=== PATIENT | male | born 1935 | race Caucasian/White ===

== ENCOUNTER → 2017-10-03 | Outpatient (CLI) | payer MEDICARE ==
[~2017-10-03] MED LIST: ALTACE5 M1 PO; ASPIRIN81 M1 PO; ATIVAN0.5 MG PO; ATORVASTATIN CA10 MG PO; BUDEPRION XL150 MG PO; BUPROPION XL150 MG PO; CIALIS5 MG PO; FLOMAX0.4 MG PO; LIPITOR10 MG PO; LORAZEPAM0.5 MG PO; MULTAQ400 MG PO; NORVASC5 MG PO; OMEPRAZOLE20 M1 PO; OMEPRAZOLE20 MG PO; RAMIPRIL2.5 MG PO; SERTRALINE HCL50 MG PO; SOTALOL80 MG PO; TAMSULOSIN HCL0.4 MG PO; TEMAZEPAM15 MG PO; TYLENOL PO
--- NOTE | 2017-10-03 14:14 | Diagnostic Imaging Report ---
PROCEDURE: X-RAY CHEST, TWO VIEWS COMPARISON: Patients [facility], DX, CHEST 2 VIEWS, 09/25/2016, 12:24. INDICATIONS: COUGH, ENLARGED LYMPH NODES FINDINGS: LUNGS: No consolidations or edema. PLEURA: No effusions or pneumothorax. HEART \T\ MEDIASTINUM: The heart is within normal size-limits. Tortuous thoracic aorta. BONES \T\ SOFT TISSUES: Degenerative changes about both shoulders and involving the thoracic spine. CONCLUSION: No acute thoracic abnormality or significant interval change. Jhon George D.O. Dictated by: Jhon George D.O. on 10/03/2017 at 14:16 Electronically approved by: Jhon George D.O. on 10/03/2017 at 14:16
== END ==
LOC: RAD 13:52
PROVIDERS: ATTEND Internal Medicine Cardiovascular Disease
DX: R05 Cough (principal); R59.9 Enlarged lymph nodes, unspecified
CPT/HCPCS: 71046

== ENCOUNTER → 2017-10-21 | Day surgery (SDC) | payer MEDICARE ==
[~2017-10-21] MED LIST changes: +ACETAMINOPHEN 1000 MG/100 ML 100 ML IV ONE; +BUPIVACAINE 0.25%/EPI 30ML SDV INJ ONE; +BUPIVACAINE HCL 0.5% INJ 30 ML VIAL INJ ONE; +DEXAMETHASONE SOD PHOS INJ 4 MG/ML VIAL ONE; +EPHEDRINE SULFATE INJ 50 MG/10 ML SYR ONE; +FENTANYL CITRATE/PF 100MCG/2 ML INJ ONE; +LIDOCAINE HCL 2% LOCAL INJ 5 ML SDV VIAL INJ ONE; +LORAZEPAM 0.5 MG TAB ONE; +LORAZEPAM 0.5 MG TAB PO NR; +MIDAZOLAM HCL 2 MG/2 ML VIAL ONE; +OMEPRAZOLE40 MG; +ONDANSETRON HCL INJ 2 MG/ML VIAL ONE; +PRADAXA75 MG; +PROPOFOL IV EMULSION 10 MG/ML 20 ML VIAL ONE; +SEVOFLURANE INHAL SOLN 250 ML PEN BTL ONE
--- OUTSIDE RECORDS SUMMARY | 2017-10-21 08:36 | XMS REPORT ---
Author Author [facility] Address Unknown Phone Unavailable Care Team Providers Care [employer] History Teacher Name Role Phone JAMIL MARTIN Unavailable Unavailable Problems This patient has no known problems. Allergies, Adverse Reactions, Alerts This patient has no known allergies or adverse reactions. Medications This patient has no known medications. Results Test Description Test Time Test Comments Text Results Atomic Results Result Comments CHEST 2 VIEWS [place] [id number] [place] [id number] Patient Name: JULIÁN BANKS MR #: [id number] : 1935 Age/Sex: 82/M Req # : [id number] Adm Physician: Ordered by: JAMIL MARTIN MD Report #: [id number] Location: [facility] Room/Bed: Procedure: [id number] DX/ CHEST 2 VIEWS Exam Date: 10/03/17 Exam Time: 1350 REPORT STATUS: Signed PROCEDURE: X-RAY CHEST, TWO VIEWS COMPARISON: [facility], DX, CHEST 2 VIEWS, 09/25/2016, 12:24. INDICATIONS: COUGH, ENLARGED LYMPH NODES FINDINGS: LUNGS: No consolidations or edema. PLEURA: No effusions or pneumothorax. HEART T MEDIASTINUM: The heart is within normal size-limits. Tortuous thoracic aorta. BONES T SOFT TISSUES: Degenerative changes about both shoulders and involving the thoracic spine. CONCLUSION: No acute thoracic abnormality or significant interval change. Sergey George D.O. Dictated by: Sergey George D.O. on 10/03/2017 at 14:16 Electronically approved by: Sergey George D.O. on 10/03/2017 at 14:16 Dictated By: SERGEY GEORGE DO 1416 Transcribed By: JOSE on 10/03/17 1416 COPY TO: JAMIL MARTIN MD
[2017-10-21 09:44] LABS: BASOPHILS % 0.7 % (0.0-1.0); EOSINOPHILS # (AUTO) 0.1 (0.0-0.4); EOSINOPHILS % 2.3 % (0.0-6.0); HEMATOCRIT 38.7 % (38.2-49.6); HEMOGLOBIN 12.8 g/dL (14.0-18.0); LYMPHOCYTES # (AUTO) 0.6 (1.0-3.2); LYMPHOCYTES % 13.9 % (18.0-39.1); MEAN CORPUSCULAR HEMOGLOBIN 29.4 pg (28-32); MEAN CORPUSCULAR HGB CONC 33.1 g/dL (31-35); MONOCYTES # (AUTO) 0.5 (0.2-0.8); MONOCYTES % 11.3 % (4.4-11.3); NEUTROPHILS # (AUTO) 3.1 (2.1-6.9); NEUTROPHILS % 71.3 % (38.7-80.0); PLATELET COUNT 179 x10e3/uL (140-360); RED BLOOD COUNT 4.35 x10e6/uL (4.3-5.7); RED CELL DISTRIBUTION WIDTH 12.9 % (11.7-14.4)
[2017-10-21 09:53] LABS: INR 1.06
[2017-10-21 10:02] LABS: ANION GAP 12.4 mmol/L (8-16); BLOOD UREA NITROGEN 12 mg/dL (7-26); BUN/CREATININE RATIO 12 (6-25); CALCIUM 9.8 mg/dL (8.4-10.2); CARBON DIOXIDE 29 mmol/L (22-29); CHLORIDE 102 mmol/L (98-107); CREATININE, SERUM 0.97 mg/dL (0.72-1.25); EST GLOMERULAR FILTRATION RATE > 60 ML/MIN (60-); GLUCOSE 102 mg/dL (74-118); POTASSIUM 4.4 mmol/L (3.5-5.1); SODIUM 139 mmol/L (136-145)
[2017-10-21 10:04] LABS: PARTIAL THROMBOPLASTIN TIME 29.3 seconds (23.8-35.5)
--- NOTE | 2017-10-21 13:33 | Operative Report ---
DATE OF PROCEDURE: October 21, 2017 PREOPERATIVE DIAGNOSIS: Left axillary adenopathy, rule out malignancy. POSTOPERATIVE DIAGNOSIS: Left axillary adenopathy, rule out malignancy. OPERATION PERFORMED: Left axillary lymphadenectomy. ANESTHESIA: General. COMPLICATIONS: None. ESTIMATED BLOOD LOSS: Minimal. DESCRIPTION OF PROCEDURE: With the patient lying in bed in the supine position under good general anesthesia, the left axilla was prepped with Betadine solution and draped in the usual manner. The area overlying the palpable mass was then infiltrated with 1/4 percent Marcaine solution. An incision was made, carried down through the subcutaneous tissue and through the superficial fascia, and immediately a matted large lymph node along with a couple of other smaller lymph nodes were encountered. The mass was probably at least 3 cm in size. This was then slowly and carefully from the surrounding structures and totally and completely removed and sent for pathological examination. A 2nd lymph node was similarly removed. All bleeding points were either electrocoagulated or ligated with 3-0 Vicryl ties. The whole area then thoroughly irrigated. Hemostasis was ascertained, and the fascia and subcutaneous tissue were then reapproximated with interrupted sutures of 3-0 Vicryl and the skin was closed with subcuticular 5-0 Vicryl. Benzoin and Steri-Strips were applied. A dressing was placed. The sponge, lap and needle count was correct. The patient tolerated the procedure well and returned to the recovery room in stable condition. Job#: [id number] ELSIE
== END | disposition home or self-care (01) ==
LOC: OR 08:33
PROVIDERS: ATTEND Surgery
DX: C83.34 Diffuse large B-cell lymphoma, lymph nodes of axilla and upper limb (principal); G20 Parkinson's disease; J44.9 Chronic obstructive pulmonary disease, unspecified; I10 Essential (primary) hypertension; I48.91 Unspecified atrial fibrillation; R00.1 Bradycardia, unspecified; G47.33 Obstructive sleep apnea (adult) (pediatric); K21.9 Gastro-esophageal reflux disease without esophagitis; F41.9 Anxiety disorder, unspecified; Z88.0 Allergy status to penicillin; Z88.2 Allergy status to sulfonamides; Z88.8 Allergy status to other drugs, medicaments and biological substances; Z79.82 Long term (current) use of aspirin; Z87.891 Personal history of nicotine dependence
CPT/HCPCS: 36415; 38525; 80048; 85025; 85610; 85730; 88305; 93005; J1100; J2001; J2250; J2405; 88307

== ENCOUNTER → 2017-11-29 | Day surgery (SDC) | payer MEDICARE ==
[2017-11-28 16:41] LABS: BASOPHILS % 0.6 % (0.0-1.0); EOSINOPHILS # (AUTO) 0.1 (0.0-0.4); HEMATOCRIT 40.3 % (38.2-49.6); HEMOGLOBIN 13.4 g/dL (14.0-18.0); LYMPHOCYTES # (AUTO) 0.9 (1.0-3.2); LYMPHOCYTES % 12.4 % (18.0-39.1); MEAN CORPUSCULAR HEMOGLOBIN 29.5 pg (28-32); MEAN CORPUSCULAR HGB CONC 33.3 g/dL (31-35); MEAN CORPUSCULAR VOLUME 88.8 fL (81-99); MONOCYTES # (AUTO) 0.6 (0.2-0.8); MONOCYTES % 8.5 % (4.4-11.3); NEUTROPHILS # (AUTO) 5.4 (2.1-6.9); NEUTROPHILS % 76.1 % (38.7-80.0); PLATELET COUNT 233 x10e3/uL (140-360); RED BLOOD COUNT 4.54 x10e6/uL (4.3-5.7); RED CELL DISTRIBUTION WIDTH 12.8 % (11.7-14.4)
[2017-11-28 17:13] LABS: ANION GAP 14.2 mmol/L (8-16); BLOOD UREA NITROGEN 13 mg/dL (7-26); BUN/CREATININE RATIO 14 (6-25); CALCIUM 9.7 mg/dL (8.4-10.2); CARBON DIOXIDE 26 mmol/L (22-29); CHLORIDE 101 mmol/L (98-107); CREATININE, SERUM 0.95 mg/dL (0.72-1.25); EST GLOMERULAR FILTRATION RATE > 60 ML/MIN (60-); GLUCOSE 86 mg/dL (74-118); POTASSIUM 4.2 mmol/L (3.5-5.1); SODIUM 137 mmol/L (136-145)
[~2017-11-29] MED LIST changes: +ACETAMINOPHEN PO; +ATROVENT HFA12.9 GM PO; +AZITHROMYCIN250 MG PO; +BUPIVACAINE 0.25% 30ML SDV INJ ONE; -BUPIVACAINE 0.25%/EPI 30ML SDV INJ ONE; -BUPIVACAINE HCL 0.5% INJ 30 ML VIAL INJ ONE; -DEXAMETHASONE SOD PHOS INJ 4 MG/ML VIAL ONE; -EPHEDRINE SULFATE INJ 50 MG/10 ML SYR ONE; +FLECAINIDE ACE100 MG PO; +HEPARIN SOD (PORCINE) 5,000 UNIT/ML VIAL ONE; +LIDOCAINE HCL 1% LOCAL INJ 20 ML VIAL ONE; -LORAZEPAM 0.5 MG TAB ONE; -LORAZEPAM 0.5 MG TAB PO NR; +LORAZEPAM1 MG PO; -MIDAZOLAM HCL 2 MG/2 ML VIAL ONE; -ONDANSETRON HCL INJ 2 MG/ML VIAL ONE; +REVATIO20 MG PO; +SINEMET 25-1001 EACH PO; +SODIUM CHLORIDE 0.9% 500ML 500 ML ONE; +ZEBETA10 MG PO
--- NOTE | 2017-11-29 16:43 | Operative Report ---
DATE OF PROCEDURE: November 29, 2017 PREOPERATIVE DIAGNOSIS: Lymphoma, needing intravenous access for chemotherapy. POSTOPERATIVE DIAGNOSIS: Lymphoma, needing intravenous access for chemotherapy. OPERATION PERFORMED: Placement of left subclavian venous access port under C-arm guidance. ANESTHESIA: General. COMPLICATIONS: None. ESTIMATED BLOOD LOSS: Minimal. DESCRIPTION OF PROCEDURE: With the patient lying in bed in the Trendelenburg position, under good general anesthesia, the left chest and neck were prepped with Betadine solution and draped in the usual manner. Standard left subclavian venipuncture was performed. A guidewire was advanced into central venous position. Using the C-arm, the tip of the guidewire was found to be at the level of the left subclavian vein as it joined into the vessels from the right side. There appeared to be an area of stricturing in this area, but we eventually managed to get the wire to go down into the superior vena cava. Probably this is secondary to lymphadenopathy from the patient's lymphoma. After this was done, a pocket was then created in the right anterior chest without any difficulty. The catheter was threaded to the subclavian position and cut to the appropriate length. The reservoir was then anchored to the anterior chest wall with interrupted sutures of 2-0 silk. The reservoir and catheter were fully heparinized. The peel-away sheath introducer was then placed over the guidewire. The guidewire was removed. The catheter was threaded through the peel-away sheath without any problems, and the peel-away sheath was removed. There was good blood return, and the reservoir and catheter were fully heparinized. Using the C-arm at this point, the left lung was found to be fully expanded and the tip of the catheter was at the level of the superior vena cava. The wounds were then closed in layers. The subcutaneous tissue was approximated with 3-0 and 4-0 Vicryl, and the skin was closed with subcuticular 5-0 Vicryl. Benzoin, Steri-Strips and dressings were applied. The sponge, lap and needle count was correct. The patient tolerated the procedure well and returned to the recovery room in stable condition. Job#: [id number]
== END | disposition home or self-care (01) ==
LOC: OR 11:57
PROVIDERS: ATTEND Surgery
DX: C85.90 Non-Hodgkin lymphoma, unspecified, unspecified site (principal); C64.9 Malignant neoplasm of unspecified kidney, except renal pelvis; G20 Parkinson's disease; G47.33 Obstructive sleep apnea (adult) (pediatric); J42 Unspecified chronic bronchitis; I10 Essential (primary) hypertension; I48.91 Unspecified atrial fibrillation; I47.1 Supraventricular tachycardia; K21.9 Gastro-esophageal reflux disease without esophagitis; F41.9 Anxiety disorder, unspecified; Z88.0 Allergy status to penicillin; Z88.2 Allergy status to sulfonamides; Z01.812 Encounter for preprocedural laboratory examination; Z79.02 Long term (current) use of antithrombotics/antiplatelets; Z90.5 Acquired absence of kidney
CPT/HCPCS: 36415; 36561; 77001; 80048; 85025; C1751; J1644; J2001; J7040

== ENCOUNTER → 2018-06-19 | Outpatient (CLI) | payer MEDICARE ==
[~2018-06-19] MED LIST changes: -ACETAMINOPHEN 1000 MG/100 ML 100 ML IV ONE; -BUPIVACAINE 0.25% 30ML SDV INJ ONE; -FENTANYL CITRATE/PF 100MCG/2 ML INJ ONE; -HEPARIN SOD (PORCINE) 5,000 UNIT/ML VIAL ONE; -LIDOCAINE HCL 1% LOCAL INJ 20 ML VIAL ONE; -LIDOCAINE HCL 2% LOCAL INJ 5 ML SDV VIAL INJ ONE; -PROPOFOL IV EMULSION 10 MG/ML 20 ML VIAL ONE; -SEVOFLURANE INHAL SOLN 250 ML PEN BTL ONE; -SODIUM CHLORIDE 0.9% 500ML 500 ML ONE
--- NOTE | 2018-06-19 16:06 | Diagnostic Imaging Report ---
EXAMINATION: PA and lateral views of the chest. COMPARISON: October 03, 2017 CLINICAL HISTORY: Fatigue, cough DISCUSSION: Lines/tubes: Chest port with tip overlying the SVC. Lungs: The lungs are well inflated and clear. No pneumonia or pulmonary edema. Pleura: No pleural effusion or pneumothorax. Heart and mediastinum: The cardiomediastinal silhouette is normal. Bones and soft tissues: No acute bony abnormalities. IMPRESSION: No acute cardiopulmonary abnormalities. Signed by: Dr. Sabas Burns M.D. on 06/19/2018 4:02 PM
== END ==
LOC: RAD 15:09
PROVIDERS: ATTEND Internal Medicine Cardiovascular Disease
DX: R05 Cough (principal); R53.83 Other fatigue
CPT/HCPCS: 71046

== ENCOUNTER → 2018-08-28 | Outpatient (CLI) | payer MEDICARE ==
--- NOTE | 2018-08-28 15:35 | Diagnostic Imaging Report ---
Exam: Bone mineral density study. History: AGE RELATED OSTEOPOROSIS Comparison: None available. Discussion: Evaluation of the left hip and lumbar spine was performed. The study is technically adequate. The patient's fracture risk is compared to an age-matched control. The patient denies prior surgery/fracture of the spine, hips or forearm. Left hip femoral neck bone mineral density: 0.6 g/cm2, T-score is -2.3, Z-score is -0.6. Left hip total bone mineral density: 0.7 g/cm2, T-score is -1.9, Z-score is -0.7. Lumbar spine total bone mineral density: 1.2 g/cm2, T-score is 0.5, Z-score is 1.8. Impression: 1. Bone mineralization by WHO Classification is low bone mass/osteopenia, the fracture risk is increased. 2. The FRAX 10-year probability of major osteoporotic fracture is 14% and hip fracture is 0.9%. These probabilities assume the patient is untreated. Signed by: Dr. Niko Stubbs D.O., M.M.M. on 08/28/2018 3:32 PM
== END ==
LOC: DX 14:41
PROVIDERS: ATTEND Specialist
DX: M81.0 Age-related osteoporosis without current pathological fracture (principal)
CPT/HCPCS: 77080

== ENCOUNTER → 2018-12-12 | Outpatient (CLI) | payer MEDICARE ==
--- NOTE | 2018-12-12 14:02 | Diagnostic Imaging Report ---
EXAMINATION: PA and lateral views of the chest. COMPARISON: Chest radiograph 06/19/2018. CLINICAL HISTORY: Asthma, cough, cardiomyopathy. DISCUSSION: Lines/tubes: Left-sided chest port with tip overlying the brachiocephalic confluence. Lungs: The lungs are well inflated and clear. No pneumonia or pulmonary edema. Pleura: No pleural effusion or pneumothorax. Heart and mediastinum: The cardiomediastinal silhouette is unremarkable. Bones and soft tissues: No acute osseous abnormality. IMPRESSION: No acute radiographic abnormality. Signed by: Dr. Leon Wong MD on 12/12/2018 1:58 PM
== END ==
LOC: RAD 13:05
PROVIDERS: ATTEND Internal Medicine Cardiovascular Disease
DX: R05 Cough (principal); J45.909 Unspecified asthma, uncomplicated; I42.9 Cardiomyopathy, unspecified
CPT/HCPCS: 71046

== ENCOUNTER → 2019-04-17 | Outpatient (CLI) | payer MEDICARE ==
--- NOTE | 2019-04-17 10:17 | Diagnostic Imaging Report ---
EXAM: US ABDOMEN COMPLETE DATE: 04/17/2019 8:32 AM INDICATION: Abdominal pain COMPARISON: None TECHNIQUE: Transverse and longitudinal ford scale and color doppler sonographic images of the upper abdomen were obtained. FINDINGS: There is no evidence of fluid or masses seen in the area of clinical concern in the right lower quadrant. LIVER 13.8 cm in the right midclavicular line. Normal echogenicity of the liver with normal contour, no masses. SPLEEN 10.4 cm in maximum diameter. Normal echogenicity, no masses. GALLBLADDER Small amount of sludge in the gallbladder. No gallbladder distention, wall thickening, or pericholecystic fluid. Negative sonographic Bray's sign.. Gallbladder wall measures 2 mm. BILE DUCTS No intra nor extra-hepatic biliary dilation. Common bile duct measures 3 mm PANCREAS: Visualized portions are normal. RIGHT KIDNEY: Status post right nephrectomy. LEFT KIDNEY: 11.7 cm Echogenicity: Normal Collecting System: No hydronephrosis Stones: None Cyst/Mass: None VESSELS: Aorta: Visualized portions are within normal size limits Inferior Vena Cava: Visualized portions are normal Main Portal Vein: 0.6 cm, normal size with hepatopetal flow. FREE FLUID: None IMPRESSION: Sludge in the gallbladder. No sonographic evidence of cholecystitis. Status post right nephrectomy. Signed by: Cherry Ochoa MD on 04/17/2019 10:13 AM
== END ==
LOC: US 08:23
PROVIDERS: ATTEND Internal Medicine Cardiovascular Disease
DX: R00.2 Palpitations (principal); R14.0 Abdominal distension (gaseous)
CPT/HCPCS: 76700

== ENCOUNTER → 2019-11-02 | Outpatient (CLI) | payer MEDICARE ==
[~2019-11-02] MED LIST changes: +AMIODARONE HCL200 MG PO; +BYSTOLIC10 MG PO; -PRADAXA75 MG; +PRADAXA75 MG PO
--- NOTE | 2019-11-02 15:35 | Diagnostic Imaging Report ---
History: Parkinson's disease Comparison studies: None Technique: Sagittal T2; axial DWI, FLAIR, MPGR, T1, Coronal FLAIR. Intravenous contrast: None Findings: Scalp: Normal in signal . No masses . Bone marrow: Normal in signal intensity. Extra-axial: No masses, no fluid collections. Brain sulci: Mildly prominent. Ventricles: Mildly prominent . No hydrocephalus . Parenchyma: Scattered T2/flair hyperintensities of the periventricular and deep white matter No masses, hemorrhage, acute or chronic vascular insults. Suprasellar region: No abnormalities. Craniocervical junction: No abnormalities. Patent foramen magnum. No Chiari one malformation. Vessels: Normal flow-voids in the arteries and sinuses. IMPRESSION: 1. No acute abnormalities. 2. Moderate chronic microvascular ischemic changes of the white matter and mild diffuse volume loss Signed by: DR Roge Shirley M.D. on 11/02/2019 3:31 PM
== END ==
LOC: MRI 14:09
PROVIDERS: ATTEND Psychiatry & Neurology Neurology
DX: G20 Parkinson's disease (principal); R26.9 Unspecified abnormalities of gait and mobility
CPT/HCPCS: 70551

== ENCOUNTER → 2020-08-19 | Outpatient (CLI) | payer MEDICARE | LOC: RAD 10:56 | PROVIDERS: ATTEND Internal Medicine Cardiovascular Disease | DX: R06.02 Shortness of breath (principal) | CPT/HCPCS: 71046 ==